=== PATIENT | female | born 1990 | race Caucasian/White ===

== ENCOUNTER 2016-07-05 18:24 | Emergency (ER) | payer OTHER, MEDICAID ==
[2016-07-05 18:52] VITALS: BP 121/66
--- NOTE | 2016-07-05 19:43 | RAD ---
INDICATION: Cough COMPARISON: None TECHNIQUE: PA and lateral dual-energy views were obtained. FINDINGS: Bones/Soft Tissues: There are no acute bony findings. Cardiomediastinal: The cardiomediastinal silhouette is normal. Lungs: There are no infiltrates. Pleura: There are no pleural effusions. Other: None IMPRESSION: NORMAL CHEST.
--- NOTE | 2016-07-05 19:44 | UC ---
Respiratory Complaint HPI - HPI Summary HPI Summary: Patient is an otherwise healthy 26yo f with a CC of cough x 3 weeks, fever of 100.3, sputum production, sore throat, rhinorrhea, FORD, congestion and sinus pressure. States she has been taking OTC nyquil and tylenol daily with improvement for 1 week. After 1 week of improvement, symptoms began again. Now , CC of worsening cough and now sore throat at a 8/10. Denies sick contacts. Denies contact with children. Received flu shot this year. Denies daily medication or significant medical history. FORD, cough and congestion have been constant X 3 weeks, sore throat and sinus pressure constant x 1 week. Describes the cough as progressively worse with "attacks" and inhaling will create a coughing episode. Tearing and SOB associated with cough. Sore throat also progressively getting worse. - History of Current Complaint Chief Complaint: UCRespiratory Stated Complaint: COUGH,SORE THROAT Time Seen by Provider: 07/05/16 18:55 Hx Obtained From: Patient Hx Last Menstrual Period: Nexplanon implant ?: No Onset/Duration: Sudden Onset Timing: Constant Severity Initially: Moderate Severity Currently: Moderate Pain Intensity: 8 Pain Scale Used: 0-10 Numeric Character: Cough: Nonproductive Associated Signs And Symptoms: Positive: Dyspnea, URI, Nasal Congestion, Sinus Discomfort - Risk Factors Pulmonary Embolism Risk Factors: Negative Cardiac Risk Factors: Negative Pseudomonas Risk Factors: Negative Tuberculosis Risk Factors: Negative - Allergies/Home Medications Allergies/Adverse Reactions: Allergies Allergy/AdvReac Type Severity Reaction Status Date / Time No Known Allergies Allergy Verified 06/01/16 11:30 Home Medications: Home Medications B 12 07/05/16 [History] Fiber Gummies 07/05/16 [History] Rwsyjlorzqp-Bxtbyuwlrzs-Rom C- [Glucosamine Chondroitin] 07/05/16 [History] Iron 07/05/16 [History] Methylphenidate TAB* [Ritalin TAB*] BID 07/05/16 [History] Probiotic Product [Align] 07/05/16 [History] PMH/Surg Hx/FS Hx/Imm Hx Previously Healthy: Yes Endocrine History Of: Denies: Diabetes, Thyroid Disease Cardiovascular History Of: Denies: Cardiac Disorders, Hypertension, Pacemaker/ICD Respiratory History Of: Denies: COPD, Asthma GI/ History Of: Denies: Ulcer, Renal Disease - Surgical History Surgical History: Yes Surgery Procedure, Year, and Place: Rt KNEE - ACL - ARTHROSCOPIC, RECON ACL THEN SCREW REMOVED - 3 TOTAL SURG - Family History Known Family History: Positive: Unknown - Social History Occupation: Employed Full-time Lives: With Family Alcohol Use: Weekly Substance Use Type: None Smoking Status (MU): Never Smoked Tobacco Have You Smoked in the Last Year: No - Immunization History Most Recent Influenza Vaccination: season Review of Systems Constitutional: Fever, Fatigue Eyes: Negative ENT: Sore Throat, Nasal Discharge Respiratory: Shortness Of Breath, Cough - severe Genitourinary: Negative Motor: Negative Neurovascular: Negative Musculoskeletal: Negative All Other Systems Reviewed And Are Negative: Yes Physical Exam Triage Information Reviewed: Yes Appearance: No Pain Distress, Well-Nourished, Ill-Appearing Vital Signs: Initial Vital Signs Temp 100.2 F 07/05/16 18:44 Pulse 104 07/05/16 18:44 Resp 18 07/05/16 18:44 BP 121/66 07/05/16 18:44 Pulse Ox 99 07/05/16 18:44 Vital Signs Reviewed: Yes Eye Exam: Normal Eyes: Positive: Discharge - clear ENT Exam: Normal ENT: Positive: Pharyngeal erythema, Nasal congestion, Nasal drainage, TMs normal Dental Exam: Normal Neck exam: Normal Neck: Positive: Supple, Nontender, No Lymphadenopathy Respiratory Exam: Normal Respiratory: Positive: Chest non-tender, No respiratory distress, No accessory muscle use, Rhonchi - in R lung base Cardiovascular Exam: Normal Cardiovascular: Positive: RRR Abdominal Exam: Normal Musculoskeletal Exam: Normal Musculoskeletal: Positive: Strength Intact, ROM Intact Neurological Exam: Normal Neurological: Positive: Alert Psychological Exam: Normal Psychological: Positive: Normal Response To Family, Age Appropriate Behavior Skin Exam: Normal UC Diagnostic Evaluation - Laboratory O2 Sat by Pulse Oximetry: 99 - Radiology Xray Interpretation: No Acute Changes Radiology Interpretation Completed By: Radiologist Respiratory Course/Dx - Course Course Of Treatment: Physical exam performed. D/t to fever and 3 weeks cough with rhonchorous sounds in RLL base, chest xray ordered. Sore throat with pharyngeal erythema, POCT rapid performed. Patient ill appearing with nasal and eye discharge, severe cough during examination and SOB. - Differential Dx/Diagnosis Differential Diagnosis/HQI/PQRI: Bronchitis, Influenza, Sinusitis Provider Diagnoses: URI with cough Discharge - Discharge Plan Condition: Stable Disposition: HOME Prescriptions: Guaifenesin-Codeine [Codeine/Guaifenesin 100-10 mg/5Ml] 10 ml PO Q4HR PRN #180 ml MDD 60 PRN Reason: Cough predniSONE TAB* [Deltasone TAB*] 10 mg PO DAILY #17 tab Patient Education Materials: Narcotic-Antitussive/Antihistamine/Decongestant ( By mouth), Upper Respiratory Infection (ED) Referrals: Jerrod FRONT EDGER,Erica Floyd [Primary Care Provider] - Additional Instructions: Take medication as prescribed to you. If you develop fever, worsening cough or symptoms, please come back to UC or follow up with your PCP.
[2016-07-05] MEDS ORDERED: guaiFENesin/CODIEN 100MG-10MG* 5 ML UDC PO ONE (20:02)
== END 2016-07-05 20:25 | disposition home or self-care (01) ==
LOC: UCEAST 18:24
DX: J06.9 Acute upper respiratory infection, unspecified (principal); R05 Cough
CPT/HCPCS: 71020; 87651; 99212; A9270-GY; G0463